=== PATIENT | female | born 1990 | race Caucasian/White ===

== ENCOUNTER 2024-10-01 14:27 | Inpatient (IN) | payer OTHER ==
[~2024-10-01] VITALS: Ht 152.4 cm; Wt 53.2 kg
[2024-10-01 16:34] LABS: PLATELET COUNT (AUTO) 347 K/uL (150-450); RED BLOOD CELL COUNT(AUTO) 4.56 MIL/uL (4.00-5.20); RED CELL DISTRIBUTION WIDTH 14.6 % (11.5-14.5); WHITE BLOOD COUNT (AUTO) 5.5 K/uL (4.5-11.0)
[2024-10-01 16:42] LABS: CALCIUM, TOTAL 8.5 mg/dL (8.8-10.5); CREATININE 0.67 mg/dL (0.60-1.30); GLOMERULAR FILTR. RATE CALC > 60 mL/min (>60); GLUCOSE,RANDOM 87 mg/dL (70-110); SODIUM SERUM 142 mmol/L (136-145); UREA NITROGEN, BLOOD 5 mg/dL (7-18)
[2024-10-01] MEDS ORDERED: DICYCLOMINE HCL 10 MG CAPSULE PO PRN (19:45)
[2024-10-01] MEDS ORDERED: METOCLOPRAMIDE HCL 5 MG/ML 2 ML VIAL IVP PRN (19:45)
[2024-10-01] MEDS ORDERED: LOPERAMIDE HCL 2 MG CAPSULE PO PRN (19:45)
[2024-10-01] MEDS ORDERED: ALBUTEROL SULFATE HFA 90 MCG/PUFF 8 GM INHALER IH PRN (20:00)
[2024-10-01] MEDS: TEMAZEPAM 15 MG CAPSULE PO SCH (20:20)
[2024-10-01 20:40] VITALS: BP 95/46; PULSE 65; RESP 18; TEMP 98; O2SAT 95
[2024-10-01] MEDS: ACETAMINOPHEN 325 MG TABLET PO PRN (21:17)
[2024-10-02 04:34] VITALS: BP 104/75; PULSE 75; RESP 18; TEMP 98; O2SAT 100
[2024-10-02 08:25] VITALS: BP 126/83; PULSE 84; RESP 18; TEMP 98.2; O2SAT 100
[2024-10-02 10:04] LABS: APPEARANCE,URINE HAZY (CLEAR); GLUCOSE, URINE (UA) NEGATIVE (NEGATIVE); LEUKOCYTE ESTERASE ,URINE NEGATIVE (NEGATIVE); NITRATE,URINE NEGATIVE (NEGATIVE); OCCULT BLOOD,URINE LARGE (NEGATIVE); PH,URINE DRUG SCREEN 6.0 (5.0-8.0); SPECIFIC GRAVITIY, URINE 1.010 (1.003-1.030)
[2024-10-02 10:09] LABS: ALCOHOL, URINE DRUG SCREEN NEGATIVE (NEGATIVE); AMPHET/METH SCREEN,URINE POSITIVE (NEGATIVE); BARBITURATE SCREEN, URINE NEGATIVE (NEGATIVE); CANNABINOID SCREEN,URINE NEGATIVE (NEGATIVE); COCAINE SCREEN,URINE NEGATIVE (NEGATIVE); METHADONE SCREEN, URINE NEGATIVE (NEGATIVE)
[2024-10-02 10:32] LABS: SQUAMOUS EPITHELIAL CELL,UR Moderate /LPF (None Seen)
[2024-10-02] MEDS: LORazepam 2 MG/ML VIAL IVP PRN (15:10)
[2024-10-02 15:47] VITALS: BP 110/79; PULSE 82; RESP 18; O2SAT 100
[2024-10-02 21:01] VITALS: BP 121/86; PULSE 93; RESP 18; TEMP 97.8; O2SAT 100
[2024-10-03 08:27] VITALS: BP 106/71; PULSE 94; RESP 20; TEMP 97.9; O2SAT 100
[2024-10-03 20:04] VITALS: BP 122/75; PULSE 95; RESP 18; TEMP 97.3; O2SAT 97
[2024-10-04 04:43] VITALS: BP 110/81; PULSE 69; RESP 18; TEMP 98.1; O2SAT 96
[2024-10-04 09:31] VITALS: BP 119/72; PULSE 79; RESP 18; TEMP 97.6; O2SAT 100
[2024-10-04] MEDS ORDERED: ACET-784 PO (15:13)
[2024-10-04 21:38] VITALS: BP 113/77; PULSE 90; RESP 18; TEMP 98.4; O2SAT 98
[2024-10-05 04:21] VITALS: BP 101/67; PULSE 81; RESP 18; TEMP 97.7; O2SAT 96
== END 2024-10-05 07:35 | DRG 897 ==
LOC: EMS 14:33 → EDH 16:15 → 6S 20:30
PROVIDERS: ADMIT Internal Medicine; ATTEND Internal Medicine
DX: F11.90 Opioid use, unspecified, uncomplicated (principal); E44.0 Moderate protein-calorie malnutrition; F10.939 Alcohol use, unspecified with withdrawal, unspecified; J45.909 Unspecified asthma, uncomplicated; F15.10 Other stimulant abuse, uncomplicated; F31.9 Bipolar disorder, unspecified; F41.9 Anxiety disorder, unspecified; Z68.22 Body mass index [BMI] 22.0-22.9, adult; Z98.82 Breast implant status; Z91.030 Bee allergy status; Z91.013 Allergy to seafood; Z98.891 History of uterine scar from previous surgery
CPT/HCPCS: 80048; 80307; 81001; 84703; 85025; 99285; G0480; J2060